=== PATIENT | male | born 1990 | race Caucasian/White ===

== ENCOUNTER → 2024-12-28 09:47 | Outpatient (REF) | payer OTHER, SELFPAY | LOC: WDC 09:47 | PROVIDERS: ATTENDING PHYSICIAN Physician Assistant | DX: N64.4 Mastodynia (principal) | CPT/HCPCS: 76642; 77062; 77066 ==

== ENCOUNTER 2025-06-24 16:48 | Emergency (ER) | payer OTHER, SELFPAY ==
[2025-06-24 16:51] VITALS: BP 146/85
[2025-06-24 17:26] LABS: Hematocrit 41.4 % (39.0-52.0); Hemoglobin 14.5 g/dL (13.0-18.0); Mean Corp Hgb Conc. 35.0 g/dL (33.0-37.0); Mean Corpuscular Volume 83.0 fL (80.0-94.0); Nucleated Red Blood Cells % 0 % (-); Platelet Count 278 10^3/uL (130-400); Red Cell Dist. Width 12.4 % (11.5-14.5)
[2025-06-24 17:27] LABS: Urine Character Clear (Clear)
[2025-06-24 17:45] LABS: Albumin 4.7 g/dl (3.5-5.0); Carbon Dioxide 28 mmol/L (22-30); eGFR > 60.00
[2025-06-24 17:55] LABS: ALT (SGPT) 31 U/L (0-50); AST (SGOT) 24 U/L (17-59); Alkaline Phosphatase 67 U/L (38-126); Blood Urea Nitrogen 11 mg/dl (9-20); Calcium 9.6 mg/dl (8.4-10.2); Chloride 103 mmol/L (98-107); Glucose 109 mg/dl (70-99); Lipase 47 U/L (23-300); Potassium 3.9 mmol/L (3.5-5.1); Sodium 139 mmol/L (135-145)
[2025-06-24 18:02] LABS: Urine Red Blood Cell 0-2 /HPF (0-2); Urine Squamous Cell 0-2 /LPF (Few); Urine White Cell 0-2 /HPF (0-5)
[2025-06-24 18:07] LABS: Total Protein 8.0 g/dl (6.3-8.2)
[2025-06-24 18:33] VITALS: BP 119/86
[2025-06-24 19:00] VITALS: BP 113/70
[2025-06-24 19:01] LABS: D-Dimer < 0.27 ug/mlFEU (0.00-0.50)
[2025-06-24 19:12] LABS: COVID-19 Antigen Negative (Negative)
[2025-06-24 19:19] LABS: Troponin I < 0.012 ng/ml
--- NOTE | 2025-06-24 19:20 | ED.GENMED ---
History of Present Illness
General
Chief Complaint: Abdominal Pain
Time Seen by Provider: 06/24/25 17:53
History of Present Illness
History of Present Illness:
Rafy is a 34-year-old male with no past medical history who reports epigastric pain and shortness of breath that began 2 days ago. Reports a fever this morning. Went to the urgent care and sent to the ER. Intermittent cough. No trauma that he
can remember.
Phy Exam
General Physical Exam
General Presentation: well appearing and no apparent distress
General Skin: warm and dry
General Habitus: normal
General Mental: alert
General Hydration: appears well hydrated
ENT Exam
ENT Exam: EOMI, pharynx normal, neck supple and normocephalic
Eye Exam
Eye Exam: PERRL, cornea clear and conjunctiva normal
Cardiovascular Exam
Cardiovascular Exam: regular rate/rhythm, no edema, no murmur and normal peripheral pulses
Pulmonary Exam
Pulmonary Exam: lungs clear, no respiratory distress, no rales, no crackles, no rhonchi, no stridor, no wheezing and no cough
Gastrointestinal Exam
Gastrointestinal Exam: normal bowel sounds, non tender, soft, no organomegaly, no pulsatile mass and non distended
Neurological Exam
Neurological Exam: alert, oriented x3, no motor deficits and speech normal
Musculoskeletal Exam
Musculoskeletal Exam: full ROM and no edema
Skin Exam
Skin Exam: normal color, warm/dry, no rash and no petechia
Psychiatric Exam
Psychiatric Exam: normal mood/affect
Course
Orders/Labs/Results
Orders:
Orders
06/24/25 16:56
Electrocardiogram (*1) Urgent
Reason for Study: Abdominal Pain
EKG- Treatment ONCE
06/24/25 17:17
Complete Blood Count/With Diff Urgent
Comprehensive Metabolic Panel Urgent
Lipase Urgent
Urinalysis Reflex To Culture Urgent
Date Specimen was Collected: 06/24/25
Time Specimen was Collected: 16:56
Urine Microscopic Reflex Cult Urgent
06/24/25 18:25
COVID-19 Antigen Urgent
Source: Nasal Swab
D-Dimer Urgent
Troponin I Urgent
Influenza A+B Rapid Molecular Urgent
FERMIN Source: Nasal Swab
Specimen Description:
Abnormal Lab Results
06/24/25
17:17
Absolute Monos (auto) 0.7 H 10^3/uL
(0.1-0.6)
Lymphocytes % 16.8 L %
(20.5-51.1)
Glucose 109 H mg/dl
(70-99)
Urine Ketones 1+ A
(Negative)
Ur Occult Blood Reflex 2+ A
(Negative)
Urine Bacteria (Reflex) Few A
(Negative)
Urine Albumin (Reflex) 2+ A
(Neg - Trace)
06/24/25 17:17
06/24/25 17:17
Vital Signs
Initial and Last Documented VS:
Initial Vital Signs
Temp Pulse Resp BP Pulse Ox
36.7 C 98 16 146/85 100
06/24/25 16:51 06/24/25 16:51 06/24/25 16:51 06/24/25 16:51 06/24/25 16:51
Last Documented Vital Signs
Temp Pulse Resp BP Pulse Ox
36.7 C 80 17 119/86 99
06/24/25 16:51 06/24/25 18:33 06/24/25 18:33 06/24/25 18:33 06/24/25 18:33
MDM/Problems Addressed
Differential Diagnosis Includes:
EKG obtained and normal sinus rhythm. Nonspecific T wave pattern. Troponin negative. Given the patient is describing a pleuritic versus musculoskeletal pain in his chest D-dimer was obtained to rule out pulmonary embolism. This is within normal
limits. CT angio deferred. UA also negative for any occult infection. Trace amount of blood. Discussed obtaining a CT abdomen with the patient however he prefers to defer this as well given that he feels well right now. Discussed this may be a
viral illness given his respiratory symptoms and fever. COVID and flu were negative. Discussed return precautions with patient including worsening shortness of breath, chest pain, abdominal pain or any fevers not responsive to Tylenol or
ibuprofen. He will follow-up with primary care physician. All questions were answered. Patient wishes to be discharged home.
*Pulse Oximetry
SaO2: 99
Oxygen Mode of Delivery: Room air
Patient hypoxic: no
*Critical Care Note
Total Time (30-74mins, 75-104mins- exclusive of procedures): Not Applicable
ED Attending Note
-
Portions of this chart may have been created with voice recognition software.� Occasional wrong word or��sound alike� substitutions may have occurred due to the inherent limitations of voice recognition software.
Discharge Plan
Departure
Referrals:
Micha Ann PA [Family Provider, Family Practice]
Interventions
Interventions:
*Risk Screen - Suicide Last Done: 06/24/25 16:51
*General Assessment Last Done: 06/24/25 16:51
*Neglect/Abuse Screening Last Done: 06/24/25 16:51
*ED COVID-19 Vaccine History Last Done: 06/24/25 17:35
*ED Influenza Vaccine History Last Done: 06/24/25 17:35
[facility] Fall Risk Assessment Tool Last Done: 06/24/25 17:34
VN-Uuteyx-Timqgflyse Assessment Last Done: 06/24/25 18:26
Discharge Date and Time
Print Language: TOGOLESE
== END 2025-06-24 20:03 | disposition home or self-care (01) ==
LOC: EMR 16:48
PROVIDERS: Emergency Medicine; Surgery Trauma Surgery; EMERGENCY PHYSICIAN Student in an Organized Health Care Education/Training Program; FAMILY PHYSICIAN Physician Assistant
DX: B34.9 Viral infection, unspecified (principal); R10.13 Epigastric pain
CPT/HCPCS: 99284; 80053; 81003; 81015; 83690; 84484; 85025; 85379; 87502; 87811; 93005